=== PATIENT | male | born 1975 | race Two or more races ===

== ENCOUNTER 2020-11-16 13:44 | Emergency (ER) | payer OTHER ==
[~2020-11-16] VITALS: Ht 190.5 cm; Wt 90.7 kg
[2020-11-16] MEDS ORDERED: CLINDAMYCIN HC300 MG PO (16:38)
[2020-11-16] MEDS ORDERED: INTESTINEX680 M1 PO (16:38)
== END 2020-11-16 17:37 | disposition home or self-care (01) ==
LOC: ER 13:44
DX: L03.113 Cellulitis of right upper limb (principal)